=== PATIENT | male | born 1955 | race Caucasian/White ===

== ENCOUNTER 2020-04-01 07:54 | Outpatient (REF) | payer MEDICARE, SELFPAY | END 2020-04-01 07:55 | disposition home or self-care (01) | LOC: HO.WFDLDS 07:54 | PROVIDERS: PCP Physician Assistant Medical; Visit Provider Internal Medicine | DX: Z20.828 Contact with and (suspected) exposure to other viral communicable diseases (principal) | CPT/HCPCS: C9803; U0003 ==

== ENCOUNTER 2023-04-05 13:02 | Outpatient (REF) | payer MEDICARE, SELFPAY | END 2023-04-05 13:03 | disposition home or self-care (01) | LOC: HO.HOSX 13:02 | PROVIDERS: PCP Physician Assistant Medical; Visit Provider Orthopaedic Surgery | DX: M17.0 Bilateral primary osteoarthritis of knee (principal) | CPT/HCPCS: 73562; 99202 ==

== ENCOUNTER 2023-04-05 13:02 | Outpatient (AMB) | payer MEDICARE, SELFPAY ==
--- NOTE | 2023-04-05 13:08 | A.OFFVIS_ITS ---
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 Previous patient of Dr. Machado. Patient describes his knee pains as sharp and severe in nature. At this point his right knee pain is more bothersome than is his left. He has had cortisone injections in the past which gave him minimal relief. He has also done physical therapy which aggravated his pain. He has tried Tylenol and anti-inflammatory medicines which gave him minimal relief. Allergies No Known Allergies Allergy (Verified 04/05/23 13:19) [facility], [facility] Social History (Updated 04/05/23 @ 13:19 by Edis Garcia) Alcohol intake: current Patient Tobacco Use Status: Never used Tobacco Physical Exam Const Other: Well-nourished well-developed very friendly male awake alert and oriented x3 in no acute distress Extrem Other: Bilateral lower extremity examination shows good capillary refill, no skin lesions noted, normal sensation light touch Bilateral knee examination shows minimal effusions, palpable crepitus with range of motion, pain with range of motion, no instability Results Reviewed Results Reviewed: X-rays of the patient's bilateral knee show moderate to severe joint space narrowing, subchondral sclerosis, no acute bony abnormalities Assessment & Plan Assessment & Plan (1) Arthritis of left knee: Code(s): M17.12 - Unilateral primary osteoarthritis, left knee (2) Arthritis of right knee: Code(s): M17.11 - Unilateral primary osteoarthritis, right knee Plan Mr. Riggins presents with bilateral knee pains, right greater than left, due to end-stage degenerative joint disease. I had a lengthy discussion with the patient regarding the treatment options. At this point the patient's symptoms are tolerable to him. We will hold off on a cortisone injection. He will continue with his activity modifications. He will follow up with me on an as- needed basis should his symptoms worsen in any way. Feel free to call me at any time should questions regarding his orthopedic management arise. I spent 22 minutes in reviewing the patient's records and imaging studies, seeing the patient and documenting in the medical record. Orders: Orders XR knee LT 3V Today M17.12 - Unilateral primary osteoarthritis, left knee XR knee RT 3V Today M17.11 - Unilateral primary osteoarthritis, right knee Coding Level of Care Code New Pt Level 2 (88469) Diagnoses Arthritis of left knee M17.12 Arthritis of right knee M17.11
== END 2023-04-05 13:52 | disposition home or self-care (01) ==
PROVIDERS: PCP Physician Assistant Medical; Visit Provider Orthopaedic Surgery
DX: M17.0 Bilateral primary osteoarthritis of knee (principal)
CPT/HCPCS: 99202

== ENCOUNTER 2023-05-17 08:27 | Outpatient (AMB) | payer MEDICARE, SELFPAY ==
--- NOTE | 2023-05-17 08:48 | MHC.OFFVIS ---
Intake Vital Signs 05/17/23 08:55 Height 6 ft 4 in Weight 215 lb BMI 26.2 Intake Visit Reasons: OV- discuss sugery RT TKA Intake Note: Viet is a 67 year old male who presents with complaints of progressively worsening right knee pain. The patient describes his pain as sharp and severe in nature, 01/17. His pain has gotten worse over the last few years in spite of continued non operative treatments. Has done physical therapy which aggravated his pain. He has also tried Tylenol and anti-inflammatory medicines which gave him minimal relief. He has had injections in the past which gave him no relief. The patient has difficulty walking even short distances because of his pain. At this point his right knee pain is interfering with his activities of daily living and his ability to sleep well through the night. Allergies No Known Allergies Allergy (Verified 05/17/23 08:57) Medication List - Last Reconciled 05/17/23 by Hunter Machado MD atorvastatin 40 mg PO DAILY cyanocobalamin (vitamin B-12) (B-12 DOTS) 500 mcg PO DAILY pantoprazole 40 mg PO DAILY [facility] Social History (Updated 04/05/23 @ 13:19 by Edis Garcia) Alcohol intake: current Patient Tobacco Use Status: Never used Tobacco Physical Exam Vital Signs: BMI result Body Mass Index 26.2 Const Other: Well-nourished well-developed very friendly male awake alert and oriented x3 in no acute distress Extrem Other: Bilateral lower extremity examination shows good capillary refill, no skin lesions noted, normal sensation light touch Right knee examination shows a minimal effusion, palpable crepitus with range of motion, pain with range of motion, range of motion from -3 degrees to 115 degrees, no instability Results Reviewed Results Reviewed: X-rays of the patient's right knee show end-stage degenerative joint disease with grade 4 favl-rf-[id number] arthritis in the medial compartment, subchondral sclerosis, osteophyte formation, no acute bony abnormalities Assessment & Plan Assessment & Plan (1) Arthritis of right knee: Code(s): M17.11 - Unilateral primary osteoarthritis, right knee Plan Mr. Riggins presents with progressively worsening right knee pain due to end-stage degenerative joint disease. I had a lengthy discussion with the patient regarding the treatment options. This point he has failed treatments. The risks and benefits of right total knee replacement surgery were discussed at length with the patient. The patient is interested in proceeding with surgery later this year. He will contact my office to pick a surgery date when he is ready do so I will see him back 1 week prior to his surgery to answer any final questions that he might have. Feel free to call me at any time should questions regarding his orthopedic management arise. Coding Level of Care Code Est Pt Level 2 (08563) Diagnoses Arthritis of right knee M17.11
[2023-05-17 08:55] VITALS: BMI 26.2
== END 2023-05-17 09:22 | disposition home or self-care (01) ==
PROVIDERS: PCP Physician Assistant Medical; Visit Provider Orthopaedic Surgery
DX: M17.11 Unilateral primary osteoarthritis, right knee (principal)
CPT/HCPCS: 99213

== ENCOUNTER → 2023-05-17 08:27 | Outpatient (BNVA) | payer MEDICARE, SELFPAY | PROVIDERS: PCP Physician Assistant Medical; Visit Provider Orthopaedic Surgery | DX: M17.11 Unilateral primary osteoarthritis, right knee (principal) | CPT/HCPCS: 99212 ==

== ENCOUNTER → 2024-08-30 10:47 | Outpatient (BNVA) | payer MEDICARE, SELFPAY | PROVIDERS: PCP Physician Assistant Medical | DX: Z01.818 Encounter for other preprocedural examination (principal) ==

== ENCOUNTER → 2024-09-03 10:55 | Outpatient (BNV) | payer MEDICARE, SELFPAY | PROVIDERS: PCP Physician Assistant Medical; Visit Provider Internal Medicine Cardiovascular Disease | DX: I45.10 Unspecified right bundle-branch block (principal) | CPT/HCPCS: 93010 ==

== ENCOUNTER 2024-09-26 07:39 | Outpatient (AMB) | payer MEDICARE, SELFPAY ==
--- OUTSIDE RECORDS SUMMARY | 2024-05-30 05:00 | XMS_ITS | Continuity of Care Document ---
Author Organization [facility] Address [address] [place] [address] [address] [place] [address] Phone Care Team Providers Care Form Tamper Name Role Phone Abdelrahman ELLINGTON, RVT, RPVI, [...] Mins- [place] & [place] [facility], [address] [place] [address] [address]Dada [place], [id number], [place] tel:[phone] CVR - [place] - [place] Venous insufficiency (chronic) (peripheral) 5 Abdelrahman ELLINGTON RVT, RPVI Robert. [address] [place] [address], [address], [place], [id number], [place]. tel:[phone] [place] [facility], [address] [place] [address] [address] 1000Dada MD, [id number], [place] tel:[phone] CVR - [place] Pain in left leg 5 Abdelrahman ELLINGTON RVT, EVIE Jennings. [address] [place] [address], Suite [facility], [place], [id number], [place]. tel:[phone] Referring Provider: Dick Qiuck MD, RVT, EVIE, [address] [place] [address] Suite [facility], [place], [address] . tel:[phone] [place] [facility], [address] [place] [address] [address] 1000Dada MD, [id number], [place] tel:[phone] CVR - [place] Varicose veins of left lower extremity with other complications 5 Abdelrahman ELLINGTON RVT, RPVI Robert. [address] [place] [address], Suite [facility], [place], [id number], [place]. tel:[phone] [place] [facility], [address] [place] [address] [address] 1000Dada MD, [id number], [place] tel:[phone] CVR - [place] Encounter for follow-up examination after completed treatment for conditions other than malignant neoplasm 5 Abdelrahman ELLINGTON RVT, RPVI Robert. [address] [place] [address], Suite [facility], [place], [id number], [place]. tel:[phone] Referring Provider: Dick Quick MD, RVT, EVIE, [address] [place] [address] Suite [facility], [place], [address] . tel:[phone] [place] [facility], [address] [place] [address] Dr Araujo 1000SuDada mohr MD, [id number], [place] tel:[phone] CVR - [place] - [place] Varicose veins of left lower extremity with other complications 5 Abdelrahman ELLINGTON RVT, EVIE Jennings. [address] [place] [address], [facility] [place], [id number], [place]. tel:[phone] Offic/outpt E&m Estab 5 Min Trial- Telemedicine CT & [place] [facility], [address] [place] [address] Dr Araujo 1000SuDada mohr MD, [id number], [place] tel:[phone] [place]R - [place] Localized edemaCramp and spasmVenous insufficiency (chronic) (peripheral)P ruritus, unspecified 5 Tono Salas. [address] [place] [address], [place], [id number], [place]. tel:[phone] [place] [facility], [address] [place] [address] Dr Araujo 1000Dada mohr MD, [id number], [place] tel:[phone] CVR - [place] No Information 5 Abdelrahman ELLINGTON RVT, EVIE Jennings. [address] [place] [address], [place], [id number], [place]. tel:[phone] Office/Oupt E&M New Pt 30 Mins- CT & [place] [facility], [address] [place] [address] Dr Araujo 1000Dada mohr MD, [id number], [place] tel:[phone] [place] - [place] Chronic venous hypertension (idiopathic) without complications of bilateral lower extremityPrur itus, unspecifiedCr amp and spasm 4 Abdelrahman ELLINGTON RVT, EVIE Jennings. [address] [place] [address], [place], [id number], [place]. tel:[phone] [place] [facility], [address] [place] [address] Dr Araujo 1000Dada mohr MD, [id number], [place] tel:[phone] [place]R - [place] Varicose veins of left lower extremity with pain Abdelrahman ELLINGTON, MATA, EVIE Jennings. [address] [place] [address], [address] [address], [place], [id number], . tel:[phone] Referring Provider: Dick Quick MD, MATA, EVIE, [address] [place] [address], [place], [address] . tel:[phone] Family History Family Member Type Diagnosis Age At Onset No Information Payers Payer name Insurance type Covered alliance party ID Authoriza tion(s) Medicare GAURANG SCHMITT [id number] BCBS GAURANG SANCHEZ [id number] Social History Type Description Quantity Date Captured [...] to Body mass index (BMI) 25.0-25.9, adult Patient education booklet given Related to Localized edema Pre and post instruc tions reviewed and provided Related to Localized edema Pre and post [...]
--- NOTE | 2024-09-26 07:58 | MHC.OFFVIS ---
Vital Signs 09/26/24 08:00 Height 6 ft 4 in Weight 220 lb BMI 26.8 Intake Visit Reasons: Pre-Op: R TKA w/ 09/30/24 Intake Note: Viet is a 69 year old male who presents with complaints of progressively worsening right knee pain. The patient describes his pain as sharp and severe in nature, 10/10. His pain has gotten worse over the last few years in spite of continued non operative treatments. Has done physical therapy which aggravated his pain. He has also tried Tylenol and anti-inflammatory medicines which gave him minimal relief. He has had injections in the past which gave him no relief. The patient has difficulty walking even short distances because of his pain. At this point his right knee pain is interfering with his activities of daily living and his ability to sleep well through the night. Allergies No Known Allergies Allergy (Verified 09/26/24 07:59) [facility] Medical History Arthritis GERD (gastroesophageal reflux disease) History of seizure (~2012) History of irregular heartbeat HLD (hyperlipidemia) Surgical History Hx of wisdom tooth extraction Hx of tonsillectomy History of esophagogastroduodenoscopy (EGD) Hx of colonoscopy H/O inguinal hernia repair (12/19/00) Hx of shoulder surgery (~2014) Social History Household Members: Spouse Housing: House Are you a primary physician locums urgent care to a significant other at home: No Do you presently have visiting nurse or other home services: No 75 years or older and lives alone: No Alcohol intake: current Patient Tobacco Use Status: Never used Tobacco e-Cigarette/Vaping Use: Never Used Physical Exam Vital Signs: BMI result Body Mass Index 26.8 Const Other: Well-nourished well-developed very friendly male awake alert and oriented x3 in no acute distress Extrem Other: Bilateral lower extremity examination shows good capillary refill, no skin lesions noted, normal sensation light touch Right knee examination shows a minimal effusion, palpable crepitus with range of motion, pain with range of motion, range of motion from -3 degrees to 115 degrees, no instability Results Reviewed Results Reviewed: X-rays of the patient's right knee show end-stage degenerative joint disease with grade 4 gdur-gs-gogc arthritis, subchondral sclerosis, no acute bony abnormalities Assessment & Plan Assessment & Plan (1) Arthritis of right knee: Code(s): M17.11 - Unilateral primary osteoarthritis, right knee Category: Medical Plan Mr. Riggins is a 69-year-old male who presents with right knee pain due to end-stage degenerative joint disease. I had a lengthy discussion with the patient regarding the treatment options. At this point he has failed continued non operative treatments. The risks and benefits of right total knee replacement surgery were discussed at length with the patient. The patient wishes to proceed with surgery. representative phlebotomy services will be consulted following his surgery for home physical therapy and nursing. The patient will follow-up as instructed. Feel free to call me at any time should questions regarding his orthopedic management arise. I spent 22 minutes in reviewing the patient's records and imaging studies, seeing the patient and documenting in the medical record. Orders: Orders XR knee RT 3V Today M17.11 - Unilateral primary osteoarthritis, right knee Type and Screen Today Z01.818 - Encounter for other preprocedural examination Hemoglobin A1c Today Z01.818 - Encounter for other preprocedural examination Coding Level of Care Code Est Pt Level 3 (95589) Complex EM visit Add On G2211 Diagnoses Arthritis of right knee M17.11
[2024-09-26 08:00] VITALS: BMI 26.8
== END 2024-09-26 08:22 | disposition home or self-care (01) ==
LOC: HO.HOS 07:40
PROVIDERS: PCP Physician Assistant Medical; Visit Provider Orthopaedic Surgery
DX: M17.11 Unilateral primary osteoarthritis, right knee (principal)
CPT/HCPCS: 99213; G2211

== ENCOUNTER 2024-09-26 08:59 | Outpatient (REF) | payer MEDICARE, SELFPAY ==
--- OUTSIDE RECORDS SUMMARY | 2024-05-30 05:00 | XMS_ITS | Continuity of Care Document ---
Author Organization [facility] Address [address] [place] [address] [address] [place] [address] Phone Care Team Providers Care Electroplating Sales Representative Name Role Phone Abdelrahman ELLINGTON, RVT, RPVI, [...] Mins- [place] & [place] [facility], [address] [place] [address] [address]Dada MD, [id number], [place] tel:[phone] CVR - [place] Venous insufficiency (chronic) (peripheral) 5 Abdelrahman ELLINGTON RVT, RPVI Robert. [address] [place] [address], [address], [place], [id number], [place]. tel:[phone] [place] [facility], [address] [place] [address] [address] 1000Dada MD, [id number], [place] tel:[phone] CVR - [place] Pain in left leg 5 Abdelrahman ELLINGTON RVT, EVIE Jennings. [address] [place] [address], Suite [facility], [place], [id number], [place]. tel:[phone] Referring Provider: Dick Quick MD, RVT, EVIE, [address] [place] [address] Suite [facility], [place], [address] . tel:[phone] [place] [facility], [address] [place] [address] [address] 1000Dada MD, [id number], [place] tel:[phone] [place] - [place] Varicose veins of left lower extremity with other complications 5 Abdelrahman ELLINGTON RVT, RPVI Robert. [address] [place] [address], Suite [facility], [place], [id number], [place]. tel:[phone] [place], [address] [place] [address] [address]Suite 1000Dada MD, [id number], [place] tel:[phone] [place] - [place] Encounter for follow-up examination after completed treatment for conditions other than malignant neoplasm 5 Abdelrahman ELLINGTON RVT, RPVI Robert. [address] [place] [address], Suite [facility], [place], [id number], [place]. tel:[phone] Referring Provider: Dick Quick MD, RVT, EVIE, [address] [place] [address] Suite [facility], [place], [address] . tel:[phone] [place] [facility], [address] [place] [address] Dr Araujo 1000SuDada mohr MD, [id number], [place] tel:[phone] CVR - [place] - [place] Varicose veins of left lower extremity with other complications 5 Abdelrahman ELLINGTON RVT, EVIE Jennings. [address] [place] [address], [facility] [place], [id number], [place]. tel:[phone] Offic/outpt E&m Estab 5 Min Trial- Telemedicine CT & [place] [facility], [address] [place] [address] Dr Araujo 1000SuDada mohr MD, [id number], [place] tel:[phone] CVR - [place] - [place] Localized edemaCramp and spasmVenous insufficiency (chronic) (peripheral)P ruritus, unspecified 5 Tono Salas. [address] [place] [address], [place], [id number], [place]. tel:[phone] [place] [facility], [address] [place] [address] Dr Araujo 1000Dada mohr MD, [id number], [place] tel:[phone] CVR - [place] - [place] No Information 5 Abdelrahman ELLINGTON RVT, EVIE Jennings. [address] [place] [address], [place], [id number], [place]. tel:[phone] Office/Oupt E&M New Pt 30 Mins- [place] & [place] [facility], [address] [place] [address] Dr Araujo 1000Dada mohr MD, [id number], [place] tel:[phone] CVR - [place] - [place] Chronic venous hypertension (idiopathic) without complications of bilateral lower extremityPrur itus, unspecifiedCr amp and spasm 4 Abdelrahman ELLINGTON RVT, EVIE Jennings. [address] [place] [address], [place], [id number], [place]. tel:[phone] [facility], [address] [place] [address] Dr Araujo 1000Dada mohr MD, [id number], [place] tel:[phone] CVR - [place] - [place] Varicose veins of left lower extremity with pain Abdelrahman ELLINGTON, MATA, EVIE Jennings. [address] [place] [address], [address] [address], [place], [id number], . tel:[phone] Referring Provider: Dick Quick MD, MATA, EVIE, [address] [place] [address], [place], [address] . tel:[phone] Family History Family Member Type Diagnosis Age At Onset No Information Payers Payer name Insurance type Covered republican ID Authoriza tion(s) Medicare GAURANG SCHMITT [id number] BCBS GAURANG SANCHEZ [id number] Social History Type Description Quantity Date Captured [...] education booklet given Related to Localized edema Diet education Related to Body mass index (BMI) 25.0-25.9, adult Giving Encouragement to exercise Related to Body mass index (BMI) 25.0-25.9, adult Lifestyle education Related to B renato mass index (BMI) 25.0-25.9, adult Pre and [...]
== END 2024-09-26 09:00 | disposition home or self-care (01) ==
LOC: HO.HOSX 08:59
PROVIDERS: Visit Provider Orthopaedic Surgery
DX: Z01.818 Encounter for other preprocedural examination (principal); M17.11 Unilateral primary osteoarthritis, right knee
CPT/HCPCS: 99212

== ENCOUNTER 2024-09-30 06:41 | Day surgery (SDC) | payer MEDICARE, SELFPAY ==
--- NOTE | 2024-09-03 | ECG_ITS ---
Test Reason : preop Blood Pressure : */* mmHG Vent. Rate : 61 BPM Atrial Rate : 61 BPM P-R Int : 172 ms QRS Dur : 112 ms QT Int : 416 ms P-R-T Axes : 74 42 45 degrees QTcB Int : 418 ms Normal sinus rhythm Incomplete right bundle branch block Borderline ECG No previous ECGs available Referred By: Shannon Montoya Electronically Signed By: DARIUS CACERES MD
[2024-09-03 09:53] VITALS: BP 127/81; PULSE 65; RESP 16; O2SAT 98; BMI 26.3
[2024-09-03 11:28] LABS: Hematocrit 41.9 % (42.0-52.0); Hemoglobin 14.7 g/dl (14.0-18.0); Mean Corpuscular HGB Conc 35.1 g/dl (31.0-36.0); Mean Corpuscular Volume 91.1 fL (80.0-98.0); Mean Platelet Volume 9.7 fL (9.4-12.4); Platelet Count 174 X10*3/uL (160-400); Red Cell Distribution Width 12.9 % (11.0-16.0); White Blood Count 4.6 X10*3/uL (4.8-10.8)
[2024-09-03 11:50] LABS: MRSA Nasal PCR NEGATIVE (Negative); SA Nasal PCR NEGATIVE (Negative)
[2024-09-03 11:54] LABS: Anion Gap 12 (12-20); Blood Urea Nitrogen 12 mg/dL (9-16); Calcium 9.2 mg/dL (8.4-10.2); Carbon Dioxide 27 mmol/L (22-29); Chloride 103 mmol/L (96-108); Creatinine Clr Calc Pharmacy 95.6; Estimated Glomerular Filt Rate > 60; Glucose Random 93 mg/dL (60-115); Potassium 4.5 mmol/L (3.3-5.1); Sodium 137 mmol/L (135-145)
[2024-09-26 09:45] LABS: Estimated Average Glucose 114 mg/dL; Hemoglobin A1C 150.0203 umol/L; Hemoglobin A1c % 5.6 % (<6.0)
[2024-09-30] VITALS (12 sets, daily range): BP systolic 107–135; BP diastolic 58–79; PULSE 45–70; RESP 12–18; TEMP 36.1–36.4; O2SAT 97–99
--- NOTE | 2024-09-30 | ECG_ITS ---
Test Reason : BRADYCARDIA Blood Pressure : */* mmHG Vent. Rate : 52 BPM Atrial Rate : 52 BPM P-R Int : 182 ms QRS Dur : 116 ms QT Int : 478 ms P-R-T Axes : * -11 99 degrees QTcB Int : 444 ms Sinus bradycardia Incomplete right bundle branch block Inferior infarct , age undetermined Abnormal ECG When compared with ECG of 03-Sep-2024 10:55, Nonspecific T wave abnormality now evident in Inferior leads Nonspecific T wave abnormality now evident in Lateral leads Referred By: Rocio Cardona Electronically Signed By: MANISH BRIDGES
[2024-09-30] MEDS: Lactated Ringers 1,000 ML 100 ML IVCONT ×2 (08:11→14:26)
--- NOTE | 2024-09-30 08:40 | HO.ANESPROP2 ---
Documented by User: Shannon Montoya NP 09/25/24 13:43 HPI - Anesthesia Eval Consult details Narrative: 69yo M for Right Knee Replacement Total, 09/30/24 [facility] No recent illness No CP/SOB with housework. Limited by knee pain GERD: ppi QHS controls Irregular heart beat/skips beat. Told years ago. Pt does not have further info. Moderate risk Stop-Bang. Discussed post-op risks. PMFSH Active Problems Active Problems: All Active Problems Arthritis of right knee (Acute) Arthritis of left knee (Acute) Past Medical History Medical History Arthritis GERD (gastroesophageal reflux disease) History of seizure (~2012) History of irregular heartbeat HLD (hyperlipidemia) Family History Family history of problems with anesthesia: No Surgical History Surgical History Hx of wisdom tooth extraction Hx of tonsillectomy History of esophagogastroduodenoscopy (EGD) Hx of colonoscopy H/O inguinal hernia repair (12/19/00) Hx of shoulder surgery (~2014) History of Problems with Anesthesia: No Social History Social History Household Members: Spouse Housing: House Are you a primary pet care attendant to a significant other at home: No Do you presently have visiting nurse or other home services: No Alcohol intake: current Patient Tobacco Use Status: Never used Tobacco e-Cigarette/Vaping Use: Never Used Use of substances other than those prescribed or required for medical reasons: No Have you been hit, kicked, punched, or otherwise hurt by someone within the past year? If so, by whom?: No Are you DNR?: No Advance Directives: No Advance Directives Information Provided: Yes Advance Directives on File: No Poor oral hygiene: No Meds Allergies Allergy/AdvReac Type Severity Reaction Status Date / Time No Known Allergies Allergy Verified 09/30/24 07:16 Home Medications ?Medication ?Instructions ?Recorded ?Confirmed ?Last Taken ?Type atorvastatin 40 mg tablet 40 mg PO BEDTIME 05/17/23 09/03/24 09/29/24 History cyanocobalamin (vitamin B-12) 500 500 mcg PO BID 05/17/23 09/03/24 09/29/24 History mcg tablet (B-12 DOTS) pantoprazole 40 mg tablet,delayed 40 mg PO BEDTIME 05/17/23 09/03/24 09/29/24 History release carboxymethylcellulose sodium 1 % 1 drp ophthalmic (eye) QID 09/03/24 09/03/24 09/29/24 History eye liquid gel drops omega 1-ane-lpf-fish oil 1,200 mg 1 cap PO BID 09/03/24 09/03/24 09/22/24 History (144 mg-216 mg) capsule (Fish Oil) sildenafil 100 mg tablet 100 mg PO DAILY PRN Sexual Activity 09/03/24 09/03/24 Unknown History Exam Height,Weight and Vital Signs: Height 6 ft 4 in Weight 97.976 kg Last Vital Signs Pulse 65 09/03/24 09:53 Resp 16 09/03/24 09:53 BP 127/81 09/03/24 09:53 Pulse Ox 98 09/03/24 09:53 O2 Del Method Room Air 09/03/24 09:53 Pertinent Lab Results Pertinent Lab Results: EKG 08/2024 Vent. Rate : 61 BPM Atrial Rate : 61 BPM P-R Int : 172 ms QRS Dur : 112 ms QT Int : 416 ms P-R-T Axes : 74 42 45 degrees QTcB Int : 418 ms Normal sinus rhythm Incomplete right bundle branch block Borderline ECG No previous ECGs available Narrative Narrative: Lab Results 09/03/24 09/03/24 09/16/24 Range/Units 10:25 10:53 06:46 WBC 4.6 L (4.8-10.8) X10*3/uL RBC 4.60 (4.60-5.80) X10*6/uL Hgb 14.7 (14.0-18.0) g/dl Hct 41.9 L (42.0-52.0) % MCV 91.1 (80.0-98.0) fL MCH 32.0 (27.0-33.0) pg MCHC 35.1 (31.0-36.0) g/dl RDW 12.9 (11.0-16.0) % Plt Count 174 (160-400) X10*3/uL MPV 9.7 (9.4-12.4) fL Absolute Nucleated RBC 0.000 (0.0-0.012) X10*3/uL Nucleated RBC % (auto) 0.0 (0.0-0.2) /100WBC Sodium 137 (135-145) mmol/L Potassium 4.5 (3.3-5.1) mmol/L Chloride 103 (96-108) mmol/L Carbon Dioxide 27 (22-29) mmol/L Anion Gap 12 (12-20) BUN 12 (9-16) mg/dL Creatinine 0.87 (0.5-1.4) mg/dL Estim Creat Clear Calc 95.6 Estimated GFR > 60 Random Glucose 93 (60-115) mg/dL Calcium 9.2 (8.4-10.2) mg/dL Nasal Screen MRSA (PCR) NEGATIVE (Negative) Nasal S. aureus Screen NEGATIVE (Negative) Nasal MRSA/S.aureus Interp SEE NOTE Blood Type A Positive Antibody Screen NEGATIVE Airway TM Dist: >3cm Neck ROM: Full Loose/Missing/Broken Teeth: No Heart: RRR Lungs: CTAB Assessment and Plan Assessment Anesthesia Assessment: Anesthesia Plan Discussed and PAT Visit Final Anesthetic Review Family History of Problems with Anesthesia: No History of Problems with Anesthesia: No Documented by User: Brisa Villeda DO 09/30/24 08:56 [facility] Past Medical History Medical History Arthritis GERD (gastroesophageal reflux disease) History of seizure (~2012) History of irregular heartbeat HLD (hyperlipidemia) Family History Family history of problems with anesthesia: No Surgical History Surgical History Hx of wisdom tooth extraction Hx of tonsillectomy History of esophagogastroduodenoscopy (EGD) Hx of colonoscopy H/O inguinal hernia repair (12/19/00) Hx of shoulder surgery (~2014) History of Problems with Anesthesia: No Social History Social History Household Members: Spouse Housing: House Are you a primary pet care attendant to a significant other at home: No Do you presently have visiting nurse or other home services: No Alcohol intake: current Patient Tobacco Use Status: Never used Tobacco e-Cigarette/Vaping Use: Never Used Use of substances other than those prescribed or required for medical reasons: No Have you been hit, kicked, punched, or otherwise hurt by someone within the past year? If so, by whom?: No Are you DNR?: No Advance Directives: No Advance Directives Information Provided: Yes Advance Directives on File: No Poor oral hygiene: No Meds Allergies Allergy/AdvReac Type Severity Reaction Status Date / Time No Known Allergies Allergy Verified 09/30/24 07:16 Home Medications ?Medication ?Instructions ?Recorded ?Confirmed ?Last Taken ?Type atorvastatin 40 mg tablet 40 mg PO BEDTIME 05/17/23 09/03/24 09/29/24 History cyanocobalamin (vitamin B-12) 500 500 mcg PO BID 05/17/23 09/03/24 09/29/24 History mcg tablet (B-12 DOTS) pantoprazole 40 mg tablet,delayed 40 mg PO BEDTIME 05/17/23 09/03/24 09/29/24 History release carboxymethylcellulose sodium 1 % 1 drp ophthalmic (eye) QID 09/03/24 09/03/24 09/29/24 History eye liquid gel drops omega 0-jid-phd-fish oil 1,200 mg 1 cap PO BID 09/03/24 09/03/24 09/22/24 History (144 mg-216 mg) capsule (Fish Oil) sildenafil 100 mg tablet 100 mg PO DAILY PRN Sexual Activity 09/03/24 09/03/24 Unknown History Exam Exam Date and Time: 09/30/24 0840 Airway Mallampati Class: II TM Dist: >3cm Neck ROM: Full Loose/Missing/Broken Teeth: No (patient denies any loose or broken teeth) Heart: S1S2 Assessment and Plan Assessment Anesthesia Assessment: Anesthesia Plan Discussed and Chart Reviewed Final Anesthetic Review Family History of Problems with Anesthesia: No History of Problems with Anesthesia: No NPO: Yes ASA Class: II Final Preanesthetic Review: No Changes in Pt Med Stat, Meds/Allgs Chart Reviewed, Consent Obtained/Reviewed and Anes Risks/Benef Reviewed Patient Risk: Low Procedure Risk: Intermediate Anesthetic Plan Anesthetic Plan: Spinal, Regional Block (right adductor canal and right ipack block) and Agree w/ Assess. and Plan Disposition: Standard PACU
--- NOTE | 2024-09-30 08:46 | P.DS_ITS ---
DS: Providers Provider Date of Service: 10/01/24 Date of discharge: 10/01/24 Primary care physician: RIGO Dukes Consults: 09/30/24 08:36 Consult to Hospitalist Routine Comment: Consulting Provider[place] [facility] Reason For Exam: Routine medical management DS: Summary Hospital Course Hospital Course: The patient underwent a successful right total knee arthroplasty, they were transferred to PACU and then to the floor to recover. During their stay, their vitals were stable, afebrile at 96.9. Labs were unremarkable, H/H 13.6/39.5. POD 0 they were started on Aspirin 325mg po bid for DVT ppx, they also received Physical Therapy services twice a day. Prior to discharge, their dressing was clean dry and intact, and the plan was to be discharged home with VNA services. Time Attestation Discharge Coordination Time (in mins): 30 Quality: Safe Use of Opioids Does Pt have an Active Cancer Diagnosis on the Problem List?: No Quality: Stroke Does the patient have a stroke diagnosis?: No Physical Exam Vital Signs: Vital Signs: Last Vital Signs Temp 97.5 F 09/30/24 07:32 Pulse 70 09/30/24 07:32 Resp 15 09/30/24 07:32 BP 135/79 09/30/24 07:32 Pulse Ox 98 09/30/24 07:32 O2 Del Method Room Air 09/30/24 07:32 BMI result Body Mass Index 26.3 Const: General: cooperative, healthy appearing and no acute distress Resp: Effort & Inspection: normal respiratory effort and able to speak in complete sentences Cardio: Rate: regular rate Peripheral pulses: Peripheral pulses 2+ throughout GI: Palpation (GI): Soft to palpation Skin: Lesions: no lesions Rashes: no rashes Extrem: Other: right knee dressing is c/d/i. Able to dorsi/plantar flex. Calf is supple and nontender. Sensation intact. Pedal pulse intact. Discharge Plan Discharge Patient Disposition: Home Health Service Referrals: Alma Lemons PA-C [Physician Upper Extremity Surgeon, Orthopedics] - 10/17/24 1:00 pm Discharge Medications: New methocarbamol 500 mg Tablet 500 mg PO TID 7 Days Qty: 21 0RF celecoxib 200 mg Capsule 200 mg PO BID 30 Days Qty: 60 0RF acetaminophen 325 mg Tablet 650 mg PO Q6H PRN (Reason: Pain, Mild 1-3,Fever,Headache) 30 Days Qty: 250 0RF aspirin 325 mg Tablet 325 mg PO BID 42 Days Qty: 84 0RF docusate sodium 100 mg Capsule 100 mg PO BID 30 Days Qty: 60 0RF gabapentin 100 mg Capsule 100 mg PO BEDTIME 7 Days Qty: 7 0RF oxycodone 5 mg Tablet 5 mg PO Q4H PRN (Reason: Pain, Moderate(Pain Scale 4-6)) 7 Days Qty: 42 0RF Rx Instructions: Partial Fill upon patient request. [facility] See Rx Instructions .ROUTE .MEDSUPPLY Qty: 1 0RF Rx Instructions: Folding front wheeled walker omega 0-fhx-iuf-fish oil [Fish Oil] 1,200 (144-216) mg Capsule 1 cap PO BID sildenafil 100 mg Tablet 100 mg PO DAILY PRN (Reason: Sexual Activity) Rx Instructions: administer 30 minutes to 4 hours before activity carboxymethylcellulose sodium 1 % Drops, Liquid Gel 1 drp OPHTHALMIC (EYE) QID cyanocobalamin (vitamin B-12) [B-12 DOTS] 500 mcg tablet 500 mcg PO BID pantoprazole 40 mg tablet,delayed release (DR/EC) 40 mg PO BEDTIME atorvastatin 40 mg tablet 40 mg PO BEDTIME Discharge Orders: Discharge Order (Routine); Ordered 10/01/24 Ordered By: Alma Lemons Diet: Advance to usual diet Activity on Discharge: Use cane or walker Activity Restrictions/Additional Instructions: Physical Therapy for ROM 0-120, quad strength, gait training. Use walker for ambulation Limit stair climbing, No shower, No tub bath, No driving Continue anticoagulant Aspirin x 6 weeks Keep Aquacel dressing clean, dry and intact. Follow up with orthopedics in 2 weeks Print Language: Irish
--- NOTE | 2024-09-30 08:48 | P.F2F_ITS ---
Service Date Service Date: 09/30/24 Encounter Date of encounter: 10/01/24 Reasons for Services Signs and symptoms assessed: s/p RTKA Pt. is considered homebound due to recent surgery. Unable to drive, poor balance, poor gait mechanics. Reason for physical therapy: home safety and mobility, therapeutic exercises, restore joint function, gait/transfer training and ADL training Homebound: Leaving the home is medically contraindicated at this time without the asist of a device and/or another person due th the listed conditions above and below. Reason homebound: unsteady gait / fall risk, leg weakness, pain with ambulation, pain with transfers, poor balance / fall risk and unable to drive Certification: Based on the above findings, I certify that this patient is confined to the home and needs intermittent longterm care, physical therapy and/or speech th erapy, or continues to need occupational therapy. The patient is under my care, and I have initiated the establishment of the plan of care. The patient will be followed by a physician who will periodically review the plan of care. Time Spent With Patient Time: Total time managing care of this patient today ____ minutes.
[2024-09-30] MEDS: ceFAZolin Sodium/Dextrose,Iso 2 GM/50 ML PIGGYBACK IV ×3 (09:30→23:52)
[2024-09-30] MEDS: Acetaminophen 1,000 MG/100 ML PIGGYBACK 400 MG IV (11:00)
--- NOTE | 2024-09-30 11:52 | PM.OP ---
Brief Operative Note Date of Service: 09/30/24 Pre-op diagnosis: Right knee degenerative joint disease Post-op diagnosis: same Procedure: Right total knee arthroplasty Implants: [place] [employer] cemented posterior stabilized total knee arthroplasty with a femoral component size 5 right, tibial component size 6, polyethylene liner size 6 with 11 mm of thickness, an asymmetric patellar component size 35 with 10 mm of thickness Surgeon: Hunter Machado MD Anesthesia: regional and spinal Was an Table Top Tile Setter used for this Procedure?: No Table Top Tile Setter: Alma Lemons Estimated blood loss (mL): 200 Pathology: other (Bony fragments from the right femur, tibia and patella) Condition: stable Disposition: PACU
--- NOTE | 2024-09-30 11:54 | W.PM.OPN ---
Operative Note Operative Note Date of Service: 09/30/24 Narrative: After the patient was identified as Viet Riggins and his right knee was initialed by myself the patient was brought to the holding area where a right leg nerve block was performed by the anesthesiologist in routine fashion. The patient was then brought to the operating room where conscious sedation and spinal anesthesia were performed by the anesthesiologist in routine fashion. The patient was given 2 g of IV Ancef preoperatively for infection prophylaxis. The patient's right lower extremity was prepped and draped in sterile fashion. A formal time-out was completed. The patient's right knee was placed onto a small bump to produce 30? of knee flexion during exposure. A #10 scalpel blade was used to make a midline incision extending 1 handbreadth proximal and distal to the patella. A second #10 scalpel blade was used to dissect the subcutaneous tissues down to the extensor mechanism. The subcutaneous flaps were maintained as thick as possible. A medial parapatellar arthrotomy was then performed using a #10 scalpel blade. The arthrotomy was begun just medial to the patellar tendon. The arthrotomy was continued 1 cm medial to the patella and then 5 mm into the medial aspect of the quadriceps tendon. The infrapatellar fat pad was partially excised to help with exposure. The soft tissue retinaculum was raised one-half of the way around the medial aspect of the proximal tibia. The patella was everted and the knee was flexed to 90?. There was no injury to the patellar tendon or its insertion onto the tibial tubercle. A drill bit was introduced into the distal aspect of the femur with a starting point 1 cm anterior to the origin of the posterior cruciate ligament. The intramedullary alignment radhika was put into place. The distal alignment guide was set for a 5 degree valgus cut. The distal cutting block was put into place and was held with 4 pins. The intramedullary alignment radhika was removed. Soft tissues were retracted in the distal femoral cut was made using a sagittal saw. The distal aspect of the femur measured to be a size 5 right component. Two drill holes were placed into the distal aspect of the femur marking 3? of external rotation. The distal cutting block was impacted into place and was held with 2 pins. Soft tissues were retracted and the 4 distal femoral cuts were made using a sagittal saw. Final notching and drilling of the distal aspect of the femur were performed in routine fashion. The trial femoral component was impacted into place. The knee was taken through a full range of motion. The patella tracked well. The patella was everted and the knee was flexed to 90?. The trial component was removed and our attention was directed to the proximal tibia. The medial and lateral menisci were removed using a #10 scalpel blade. A small rim of the medial meniscus was left intact to help prevent injury to the medial collateral ligament. A drill bit was then introduced into the proximal tibia with a starting point midway from medial to lateral and one-third of the way posteriorly. The intramedullary alignment radhika was put into place. The proximal tibial cutting guide was placed over the alignment radhika in line with the 2nd toe. The guide was held in place using 3 pins. The intramedullary alignment radhika was removed. Soft tissues were retracted and the proximal tibial cut was made using a sagittal saw. The proximal tibia measured to be a size 6 component. The tibial tray was put into place with an 11 mm liner. The femoral component was impacted into place. The knee was taken through a full range of motion. There was full flexion and full extension. There was no instability with varus or valgus stress testing with the knee in flexion or extension. The patella tracked well with no medially directed force. The rotation of the tibial tray was marked using electrocautery with the knee in extension. The patella was everted and the knee was flexed to 90?. All trial components were removed. The tibial tray was placed onto the proximal tibia in line with the electrocautery abdiaziz. The tray was held in place using 3 pins. Final broaching of the proximal tibia was performed in routine fashion. The trial liner and trial femoral component were put into place. The knee was brought into extension and our attention was directed to the patella. The patella measured 25 mm in thickness. The patellar resection guide was set for a 10 mm resection. Soft tissues were retracted and the patella cut was made using a sagittal saw. The remaining patella measured 15 mm in thickness. The undersurface of the patella was measured to be a size 35 asymmetric component. Three drill holes were placed into the undersurface of the patella in routine fashion. The trial component was put into place. The knee was taken through a full range of motion. The patella tracked well. The patella was everted and the knee was flexed to 90?. All trial components were removed. The knee was once again brought into extension and placed onto a small bump. The knee joint was irrigated with copious amounts of normal saline solution via pulse lavage while the cement was mixed. The patella was everted and the knee was flexed to 90?. A small amount of cement was placed along the posterior aspects of the tibial and femoral components. Cement was then pressurized into the proximal tibia. The tibial component was impacted into place. Any excess cement was removed. The polyethylene liner was then impacted into place. Cement was then pressurized into the distal aspect of the femur. A small amount of cement was placed into the intramedullary canal to help reduce bleeding. The femoral component was impacted into place. Any excess cement was removed. The knee was then brought into extension. Cement was pressurized into the undersurface of the patella. The patellar component was put into place and was held with a patella clamp. Any excess cement was removed. Once the cement had hardened the patellar clamp was removed. The knee was taken through a full range of motion. There was full flexion and extension. There was no instability with varus or valgus stress testing with the knee in flexion or extension. The patella tracked well with no medially directed force. The knee joint was irrigated with copious amounts of normal saline solution via pulse lavage. Any significant bleeding vessels were coagulated. The patient's right knee was placed onto a small bump. The arthrotomy was closed with #2 Ethibond [id number] interrupted suture as well as #1 Vicryl [id number] interrupted suture. The wound was once again irrigated. The subcutaneous tissues were closed with 0 Vicryl and 2-0 Vicryl interrupted sutures. The skin was closed with skin petra. Dry sterile dressing and Gregg bandages were placed over the patient's right knee. The patient was awake and alert. The patient was transferred to the recovery room in stable condition.
--- NOTE | 2024-09-30 12:36 | PHA.MEDREC ---
Addendum entered by Don eRddy [facility] 09/30/24 12:39: MED REC CHECKED BY [facility] Original Note: Pharmacy Consult ? Medication Reconciliation Pharmacy has reviewed the medication reconciliation done by nursing. Claims match med list.
[2024-09-30] MEDS: Docusate Sodium 100 MG CAPSULE PO ×2 (14:11→20:32)
[2024-09-30] MEDS: Celecoxib 200 MG CAPSULE PO ×2 (14:11→20:32)
[2024-09-30] MEDS: methocarbamoL 500 MG TABLET PO ×2 (14:11→20:32)
--- NOTE | 2024-09-30 15:17 | PC.NURSE ---
Heart rate 47-48, pt is asymptomatic, and [employer] Rocio made aware.
--- NOTE | 2024-09-30 15:39 | HO.PM.IMCN ---
History of Present Illness Data of Consult Service Date: 09/30/24 Primary Care Provider: RIGO Dukes [facility] Reason for consult: Medical management 69-year-old male with a past medical history of arthritis, GERD, remote history of seizure (2012), history of arrhythmia, hyperlipidemia, admitted today for a right total knee replacement with Dr. Machado. Patient is seen postoperative, he is awake and alert, required a straight catheterization due to retention. Patient reported to nursing that he has 2-6 beers daily, his currently on a CIWA scale, not scoring. Patient had a combination of general, regional and spinal anesthesia. He is bradycardic. EKG without any ischemic changes, incomplete RBBB. Patient is asymptomatic, denies any shortness of breath, chest pain, dizziness lightheadedness or any other concerning symptoms. His blood pressure is stable. He is eating and drinking, no nausea or vomiting. Review of Systems Review of Systems: Denies any shortness of breath, chest pain, dizziness, lightheadedness, abdominal pain or discomfort, nausea vomiting or diarrhea PMFSH Medical History Arthritis GERD (gastroesophageal reflux disease) History of seizure (~2012) History of irregular heartbeat HLD (hyperlipidemia) Surgical History Hx of wisdom tooth extraction Hx of tonsillectomy History of esophagogastroduodenoscopy (EGD) Hx of colonoscopy H/O inguinal hernia repair (12/19/00) Hx of shoulder surgery (~2014) Social History Household Members: Spouse Housing: House Are you a primary caregivers homecare to a significant other at home: No Do you presently have visiting nurse or other home services: No Alcohol intake: current Patient Tobacco Use Status: Never used Tobacco e-Cigarette/Vaping Use: Never Used Use of substances other than those prescribed or required for medical reasons: No Currently Displaying Signs/Symptoms of Drug Intoxication Withdrawal: No Have you been hit, kicked, punched, or otherwise hurt by someone within the past year? If so, by whom?: No Do you feel safe in your current relationship?: Yes Is there a partner from a previous relationship who is making you feel unsafe now?: No Are you made to feel afraid or neglected: No Spiritual Healthcare Practices: pentecostal Are you DNR?: No Advance Directives: No Advance Directives Information Provided: Yes Advance Directives on File: No Do you have a plan to hurt others: No Plan Recently lost weight without trying: No Nutrition Risks: No Nutritional Risk Poor oral hygiene: No Meds Allergies Allergy/AdvReac Type Severity Reaction Status Date / Time No Known Allergies Allergy Verified 09/30/24 07:16 Active Medications: Current Medications Acetaminophen (Acetaminophen 325 Mg Tablet) 650 mg PO Q6H PRN PRN Reason: Pain, Mild 1-3,fever,headache Artificial Tears (Artificial Tears 15 Ml Drops) 1 drop EYE-BOTH QID [facility] Aspirin (Aspirin 325 Mg Tablet) 325 mg PO BID [facility] Atorvastatin Calcium (Atorvastatin Calcium 40 Mg Tablet) 40 mg PO BEDTIME IVANIA Celecoxib (Celecoxib 200 Mg Capsule) 200 mg PO BID [facility] Last Admin: 09/30/24 14:11 Dose: 200 mg Cyanocobalamin (Cyanocobalamin (Vitamin B-12) 500 Mcg Tablet) 500 mcg PO BID [facility] Docusate Sodium (Docusate Sodium 100 Mg Capsule) 100 mg PO BID [facility] Last Admin: 09/30/24 14:11 Dose: 100 mg Gabapentin (Gabapentin 100 Mg Capsule) 100 mg PO BEDTIME [facility] Hydromorphone HCl (Hydromorphone Hcl 0.5 Mg/0.5 Ml Syringe) 0.25 mg IVPUSH Q4H PRN; Protocol PRN Reason: Pain, Severe (Pain Scale 7-10) Lactated Ringer's (Lr) 1,000 mls @ 100 mls/hr IVCONT .Q10H [facility] Last Admin: 09/30/24 14:26 Dose: 100 mls/hr Cefazolin Sodium/Dextrose (Ancef) 2 gm in 50 mls @ 100 mls/hr IV Q8H [facility] Stop: 10/01/24 00:01 Magnesium Hydroxide (Milk Of Magnesia 30 Ml Oral.Susp) 30 ml PO DAILY PRN PRN Reason: Constipation Melatonin (Melatonin 3 Mg Tablet) 6 mg PO BEDTIME PRN PRN Reason: Insomnia Methocarbamol (Methocarbamol 500 Mg Tablet) 500 mg PO TID [facility] Last Admin: 09/30/24 14:18 Dose: Not Given Omeprazole (Omeprazole 20 Mg Capsule.Dr) 20 mg PO DAILY@1800 IVANIA Ondansetron HCl (Ondansetron Hcl 4 Mg/2 Ml Vial) 4 mg IVPUSH Q8H PRN PRN Reason: Nausea and Vomiting Oxycodone HCl (Oxycodone Hcl Immed Release 5 Mg Tablet) 5 mg PO Q4H PRN PRN Reason: Pain, Moderate(Pain Scale 4-6) Sodium Chloride (0.9 % Sodium Chloride Flush 3 Ml Syringe) 3 ml IVFLUSH QSHIFT [facility] Home Medications ?Medication ?Instructions ?Recorded ?Confirmed ?Last Taken ?Type atorvastatin 40 mg tablet 40 mg PO BEDTIME 05/17/23 09/03/24 09/29/24 History cyanocobalamin (vitamin B-12) 500 500 mcg PO BID 05/17/23 09/03/24 09/29/24 History mcg tablet (B-12 DOTS) pantoprazole 40 mg tablet,delayed 40 mg PO BEDTIME 05/17/23 09/03/24 09/29/24 History release carboxymethylcellulose sodium 1 % 1 drp ophthalmic (eye) QID 09/03/24 09/03/24 09/29/24 History eye liquid gel drops omega 9-gqm-izd-fish oil 1,200 mg 1 cap PO BID 09/03/24 09/03/24 09/22/24 History (144 mg-216 mg) capsule (Fish Oil) sildenafil 100 mg tablet 100 mg PO DAILY PRN Sexual Activity 09/03/24 09/03/24 Unknown History Physical Exam Vital Signs and Narrative: Vital Signs: Last Vital Signs Temp 96.9 F 09/30/24 13:11 Pulse 47 L 09/30/24 14:15 Resp 18 09/30/24 13:11 BP 125/77 09/30/24 13:11 Pulse Ox 99 09/30/24 13:11 O2 Del Method Room Air 09/30/24 13:11 BMI result Body Mass Index 26.3 CONST: Alert and oriented, in NAD. Well nourished HEENT: Normocephalic, atraumatic, MMM, Eyes clear, Neck supple RESP: Lungs clear, RRR even and regular HEART:,RRR, S1, S2. No edema. Bradycardia GI:Abdomen Soft NT, ND. + BS times four :Deferred SKIN: Warm dry and intact, no visible lesions or rashes. Gregg wrap in place. NEURO:CN II-XII Intact bilaterally, Sensation intact. Speech clear PSYCH: Normal affect Results Labs 09/03/24 10:53 09/03/24 10:53 Assessment and Plan (1) Bradycardia following surgery: Status: Acute Plan 69-year-old male with a past medical history of hyperlipidemia, acid reflux admitted after elective right total knee replacement with Dr. Machado today. Postoperatively he is doing well, eating and drinking no evidence of pain or nausea. Patient has been bradycardic, rate improving. Status post right total knee replacement Plan per surgery Straight cath as needed for urinary retention EtOH use Reports 2-6 beers a day. No evidence of withdrawal Continue CIWA scale Per patient he has never had any symptoms of alcohol withdrawal. Bradycardia Patient's heart rate is 48-52. EKG with incomplete right bundle branch block, no ischemic changes. Continue to monitor on telemetry. Acid reflux Continue Prilosec Hyperlipidemia Continue statin VTE prophylaxis: ASA 325 b.i.d. Code status: FULL CODE Thank you for allowing me to participate in the care of this patient. Will continue to follow Please notofy medicine with acute changes or concerns.
[2024-09-30] MEDS: Omeprazole 20 MG CAPSULE.DR PO (15:55)
[2024-09-30] MEDS: Aspirin 325 MG TABLET PO ×2 (17:32→20:33)
[2024-09-30] MEDS: Atorvastatin Calcium 40 MG TABLET PO (20:32)
[2024-09-30] MEDS: Gabapentin 100 MG CAPSULE PO (20:32)
[2024-09-30] MEDS: Cyanocobalamin (Vitamin B-12) 500 MCG TABLET PO (20:33)
[2024-10-01] VITALS: BP 108/65; PULSE 59; RESP 20; TEMP 36.3; O2SAT 96
[2024-10-01] MEDS: Lactated Ringers 1,000 ML 100 ML IVCONT (02:51)
[2024-10-01 03:01] VITALS: BP 100/60; PULSE 55; RESP 16; TEMP 36.1; O2SAT 94
[2024-10-01 06:03] LABS: MANUAL DIFF FLAG NO
[2024-10-01 06:19] LABS: Anion Gap 13 (12-20); Blood Urea Nitrogen 17 mg/dL (9-16); Calcium 9.1 mg/dL (8.4-10.2); Carbon Dioxide 24 mmol/L (22-29); Chloride 108 mmol/L (96-108); Creatinine Clr Calc Pharmacy 112.4; Estimated Glomerular Filt Rate > 60; Glucose Fasting 111 mg/dL (60-99); Potassium 4.5 mmol/L (3.3-5.1); Sodium 140 mmol/L (135-145)
[2024-10-01 06:20] LABS: Basophils Percent Auto 0.1 % (0-2); Hematocrit 39.5 % (42.0-52.0); Hemoglobin 13.6 g/dl (14.0-18.0); Imm Gran Abs Auto 0.07 X10*3/uL (0.00-0.03); Imm Gran Pct Auto 0.6 % (0.0-0.4); Lymphocytes Absolute Auto 0.7 X10*3/uL (1.2-4.9); Lymphocytes Percent Auto 5.6 % (20-40); Mean Corpuscular HGB Conc 34.4 g/dl (31.0-36.0); Mean Corpuscular Hemoglobin 31.9 pg (27.0-33.0); Mean Corpuscular Volume 92.7 fL (80.0-98.0); Mean Platelet Volume 9.8 fL (9.4-12.4); Monocytes Absolute Auto 0.9 X10*3/uL (0.1-1.2); Monocytes Percent Auto 7.3 % (2-11); Neutrophils Absolute Auto 10.6 x10*3/uL (2.0-8.3); Neutrophils Percent Auto 86.4 % (45-73); Platelet Count 167 X10*3/uL (160-400); Red Blood Count 4.26 X10*6/uL (4.60-5.80); Red Cell Distribution Width 12.7 % (11.0-16.0); White Blood Count 12.2 X10*3/uL (4.8-10.8)
[2024-10-01] MEDS: Aspirin 325 MG TABLET PO (07:14)
[2024-10-01] MEDS: Cyanocobalamin (Vitamin B-12) 500 MCG TABLET PO (07:15)
[2024-10-01] MEDS: Docusate Sodium 100 MG CAPSULE PO (07:15)
[2024-10-01] MEDS: methocarbamoL 500 MG TABLET PO (07:15)
[2024-10-01] MEDS: Celecoxib 200 MG CAPSULE PO (07:15)
[2024-10-01] MEDS: 0.9 % Sodium Chloride Flush 3 ML SYRINGE IVFLUSH (07:18)
--- NOTE | 2024-10-01 07:33 | PM.PNORT ---
Subjective Subjective Date of Service: 10/01/24 Interval history: POD1 s/p RTKA Patient is resting in bed comfortably No overnight events Pain is managed No additional complaints Physical Exam Vital Signs: Vital Signs: Last Vital Signs Temp 96.9 F 10/01/24 03:01 Pulse 55 10/01/24 03:01 Resp 16 10/01/24 03:01 BP 100/60 10/01/24 03:01 Pulse Ox 94 10/01/24 03:01 O2 Del Method Room Air 10/01/24 03:01 BMI result Body Mass Index 26.3 Const: General: cooperative, healthy appearing and no acute distress Resp: Effort & Inspection: normal respiratory effort and able to speak in complete sentences Cardio: Rate: regular rate Peripheral pulses: Peripheral pulses 2+ throughout GI: Palpation (GI): Soft to palpation Skin: Lesions: no lesions Rashes: no rashes Extrem: Other: rt knee dressing is c/d/i. Able to dorsi/plantar flex. Calf is supple and nontender. Sensation intact. Pedal pulse intact. Procedures Date of Service Date of Service: 10/01/24 Progress Note: A&P Assessment and plan (1) Status post total knee replacement, right: Status: Acute Plan Continue pain mgmnt Begin ASA for dvt ppx begin PT for RTKA - WBAT Dispo planning-Pending PT eval, pain mgmnt Time Spent With Patient Time: Total time managing care of this patient today ____ minutes. Quality Stroke Does the patient have a stroke diagnosis?: No VTE Prior VTE?: No VTE Risk Level:: Medical - moderate - high VTE Device Contraindication: N/A - Device Ordered VTE Drug Contraindication: N/A - Med Ordered
[2024-10-01 07:55] VITALS: BP 117/68; PULSE 56; RESP 12; TEMP 36.1; O2SAT 99
--- NOTE | 2024-10-01 08:10 | HO.POSTANES ---
Post Anesthesia Evaluation Post Anesthesia Evaluation Date of Service: 10/01/24 Vital Signs: Vital Signs Temp Pulse Resp BP Pulse Ox O2 Del Method 10/01/24 07:55 96.9 F 56 12 117/68 99 Room Air 10/01/24 03:01 96.9 F 55 16 100/60 94 Room Air 10/01/24 00:00 97.4 F 59 20 108/65 96 Room Air Anesthesia: Regional and Spinal Mental Status: Awake Pain Control: Satisfactory Nausea/Vomiting: None Hydration: Adequate Anesthesia-Related Issues: No Anes. Related Issues
--- NOTE | 2024-10-01 09:40 | MHC.CM.PN ---
pt lives with had no previous services has a ride home when dcd pt to go home with vna
== END 2024-10-01 13:45 | disposition home health service (06) ==
LOC: HO.SSS 08:48 → HO.S3 13:07
PROVIDERS: Physician Assistant; PCP Physician Assistant Medical; Visit Provider Orthopaedic Surgery
PROC: (CPT 27447; principal; 2024-09-30 09:00)
DX: M17.11 Unilateral primary osteoarthritis, right knee (principal); M25.561 Pain in right knee; R26.2 Difficulty in walking, not elsewhere classified; I97.191 Other postprocedural cardiac functional disturbances following other surgery; R00.1 Bradycardia, unspecified; Y83.9 Surgical procedure, unspecified as the cause of abnormal reaction of the patient, or of later complication, without mention of misadventure at the time of the procedure; K21.9 Gastro-esophageal reflux disease without esophagitis; E78.5 Hyperlipidemia, unspecified; Z86.69 Personal history of other diseases of the nervous system and sense organs; R33.9 Retention of urine, unspecified; F10.90 Alcohol use, unspecified, uncomplicated; Z79.899 Other long term (current) drug therapy; Z98.890 Other specified postprocedural states
CPT/HCPCS: 27447; 36415; 80048; 83036; 85025; 85027; 86850; 86900; 86901; 87640; 87641; 88305; 88311; 93005; 97161; C1776; J0131; J0665; J0690; J1100; J2003; J2250; J2704; J3370; J7120

== ENCOUNTER → 2024-09-30 06:41 | Outpatient (BNV) | payer MEDICARE, SELFPAY | PROVIDERS: PCP Physician Assistant Medical; Visit Provider Nurse Practitioner Family | DX: I97.89 Other postprocedural complications and disorders of the circulatory system, not elsewhere classified (principal) | CPT/HCPCS: 99222 ==

== ENCOUNTER → 2024-09-30 06:41 | Outpatient (BNV) | payer MEDICARE, SELFPAY | PROVIDERS: PCP Physician Assistant Medical; Visit Provider Orthopaedic Surgery | DX: Z47.1 Aftercare following joint replacement surgery (principal); Z96.651 Presence of right artificial knee joint | CPT/HCPCS: 27447; 99024; G0180 ==

== ENCOUNTER → 2024-09-30 15:30 | Outpatient (BNV) | payer MEDICARE, SELFPAY | PROVIDERS: PCP Physician Assistant Medical; Visit Provider Internal Medicine | DX: I45.10 Unspecified right bundle-branch block (principal); R00.1 Bradycardia, unspecified | CPT/HCPCS: 93010 ==

== ENCOUNTER 2024-10-02 12:47 | Outpatient (AMB) | payer MEDICARE, SELFPAY ==
--- OUTSIDE RECORDS SUMMARY | 2024-05-30 05:00 | XMS_ITS | Continuity of Care Document ---
Author Organization [facility] Address [address] [place] [address] [address] [place] [address] Phone Care Team Providers Care Body Make Up Artist Name Role Phone Abdelrahman ELLINGTON, RVT, RPVI, [...] Mins- [place] & [place] [facility], [address] [place] [address] [address], [id number], [place] tel:[phone] [place] Venous insufficiency (chronic) (peripheral) 5 Abdelrahman ELLINGTON RVT, RPVI Robert. [address] [place] [address], [address], [place], [id number], [place]. tel:[phone] [place] [facility], [address] [place] [address] [address]Dada [place], [id number], [place] tel:[phone] [facility] [place] Pain in left leg 5 Abdelrahman ELLINGTON RVT, EVIE Jennings. [address] [place] [address], Suite [facility], [place], [id number], [place]. tel:[phone] Referring Provider: Dick Quick MD, RVT, EVIE, [address] [place] [address] [address] [facility], [place], [address] . tel:[phone] [place] [facility], [address] [place] [address] [address]ada [place], [id number], [place] tel:[phone] [facility] Varicose veins of left lower extremity with other complications 5 Abdelrahman ELLINGTON RVT, RPVI Robert. [address] [place] [address], [address] [facility], [place], [id number], [place]. tel:[phone] [place] [facility], [address] [place] [address] [address], [id number], [place] tel:[phone] [facility] Encounter for follow-up examination after completed treatment for conditions other than malignant neoplasm 5 Abdelrahman ELLINGTON RVT, RPVI Robert. [address] [place] [address], [address] [facility], [place], [id number], [place]. tel:[phone] Referring Provider: Dick Quick MD, RVT, EVIE, [address] [place] [address] [address] [facility], [place], [address] . tel:[phone] [place] [facility], [address] [place] [address] Dr Araujo 1000SuDada mohr [place], [id number], [place] tel:[phone] [facility] - [place] - [place] Varicose veins of left lower extremity with other complications 5 Abdelrahman ELLINGTON RVT, EVIE Jennings. [address] [place] [address], [facility] [place], [id number], [place]. tel:[phone] Offic/outpt E&m Estab 5 Min Trial- Telemedicine CT & [place] [facility], [address] [place] [address] Dr Araujo 1000SuDada mohr MD, [id number], [place] tel:[phone] [facility] Localized edemaCramp and spasmVenous insufficiency (chronic) (peripheral)P ruritus, unspecified 5 Tono Salas. [address] [place] [address], [place], [id number], [place]. tel:[phone] [place] [facility], [address] [place] [address] Dr Araujo 1000Dada mohr [place], [id number], [place] tel:[phone] [facility] [place] No Information 5 Abdelrahman ELLINGTON RVT, EVIE Jennings. [address] [place] [address], [place], [id number], [place]. tel:[phone] Office/Oupt E&M New Pt 30 Mins- CT & [place] [facility], [address] [place] [address] Dr Araujo 1000Dada mohr [place], [id number], [place] tel:[phone] [facility] Chronic venous hypertension (idiopathic) without complications of bilateral lower extremityPrur itus, unspecifiedCr amp and spasm 4 Abdelrahman ELLINGTON RVT, EVIE Jennings. [address] [place] [address], [place], [id number], [place]. tel:[phone] [place] [facility], [address] [place] [address] Dr Araujo 1000Dada mohr [place], [id number], [place] tel:[phone] [facility] - [place] Varicose veins of left lower extremity with pain Abdelrahman ELLINGTON, MATA, EVIE Jennings. [address] [place] [address], [place] [address], [place], [id number], . tel:[phone] Referring Provider: Dick Quick MD, MATA, EVIE, [address] [place] [address], [place], [id number] . tel:[phone] Family History Family Member Type Diagnosis Age At Onset No Information Payers Payer name Insurance type Covered republican ID Authoriza tion(s) Medicare GAURANG SCHMITT [id number] BCBS GAURANG SANCHEZ [id number] Social History Type Description Quantity Date Captured [...] education booklet given Related to Localized edema Pre and post instruc tions reviewed and provided Related to Chronic venous hypertension (idiopathic) without complications of bilateral lower extremity Patient education booklet given Related to Chronic venous hypertension (idiopathic) without complications of bilateral lower extremity Lifestyle education Related to B renato mass index (BMI) 25.0-25.9, adult Giving Encouragement to exercise Related to Body mass index (BMI) 25.0-25.9, adult Diet education Related to Body mass index (BMI) 25.0-25.9, adult Assessments Type Assessment Date No Information Patient Care Teams Name Effective Dates (start - stop) Status Members No Information
--- NOTE | 2024-10-02 13:06 | A.OFFVIS_ITS ---
Intake Visit Reasons: PO-R TKA w/DR 09/30/24 dressing change Intake Note: Mr. Riggins underwent right total knee replacement surgery on 09/30/2024 and presents for a dressing change. The patient states that he noticed that his dressing had become loose yesterday. He continues with his home physical therapy. He denies any fevers or chills. Allergies No Known Allergies Allergy (Verified 09/30/24 07:16) Medication List - Last Reconciled 10/02/24 by Hunter Machado MD acetaminophen 500 mg PO Q6H PRN aspirin 325 mg PO BID 42 days atorvastatin 40 mg PO BEDTIME carboxymethylcellulose sodium 1% 1 drp ophthalmic (eye) QID celecoxib (Celebrex) 200 mg PO BID PRN 30 days cyanocobalamin (vitamin B-12) (B-12 DOTS) 500 mcg PO BID docusate sodium 100 mg PO BID 30 days gabapentin 100 mg PO BEDTIME 7 days methocarbamol 500 mg PO TID 7 days omega 0-uum-acg-fish oil 1,200 (144-216) mg (Fish Oil) 1 cap PO BID oxycodone 5 mg PO Q4H PRN 7 days pantoprazole 40 mg PO BEDTIME sildenafil 100 mg PO DAILY PRN walker Folding front wheeled walker [facility] Medical History Arthritis GERD (gastroesophageal reflux disease) History of seizure (~2012) History of irregular heartbeat HLD (hyperlipidemia) Surgical History Hx of wisdom tooth extraction Hx of tonsillectomy History of esophagogastroduodenoscopy (EGD) Hx of colonoscopy H/O inguinal hernia repair (12/19/00) Hx of shoulder surgery (~2014) Social History Household Members: Spouse Housing: House Are you a primary behavioral health care coordinator to a significant other at home: No Do you presently have visiting nurse or other home services: No 75 years or older and lives alone: No Alcohol intake: current Patient Tobacco Use Status: Never used Tobacco e-Cigarette/Vaping Use: Never Used service: No Physical Exam Extrem Other: Right lower extremity examination shows that the surgical incision is healing well, no erythema, minimal discomfort with range of motion Assessment & Plan Assessment & Plan (1) Right knee pain: Code(s): M25.561 - Pain in right knee Category: Medical Plan Viet is doing well after undergoing right total knee replacement surgery on 09/30/2024. A sterile dressing was applied. He will continue with his physical therapy exercises. He will follow up as scheduled. Feel free to call me at any time should questions regarding his orthopedic management arise. Coding Level of Care Code Global (18810) Diagnoses Right knee pain M25.561
== END 2024-10-02 13:06 | disposition home or self-care (01) ==
LOC: HO.HOS 12:48
PROVIDERS: PCP Physician Assistant Medical; Visit Provider Orthopaedic Surgery
DX: M25.561 Pain in right knee (principal)
CPT/HCPCS: 99024

== ENCOUNTER → 2024-10-02 12:47 | Outpatient (BNVA) | payer MEDICARE, SELFPAY | PROVIDERS: PCP Physician Assistant Medical; Visit Provider Orthopaedic Surgery | DX: M25.561 Pain in right knee (principal) | CPT/HCPCS: 99212 ==

== ENCOUNTER 2024-10-17 09:15 | Outpatient (REF) | payer MEDICARE, SELFPAY ==
--- OUTSIDE RECORDS SUMMARY | 2024-05-30 05:00 | XMS_ITS | Continuity of Care Document ---
Author Organization [facility] Address [address] [place] [address] [address] [place] [address] Phone Care Team Providers Care Lpn Medical Assistant Name Role Phone Abdelrahman ELLINGTON, RVT, RPVI, [...] Mins- [place] & [place] [facility], [address] [place] [address] [address]Dada [place], [id number], [place] tel:[phone] [place] Venous insufficiency (chronic) (peripheral) 5 Abdelrahman ELLINGTON RVT, RPVI Robert. [address] [place] [address], [address], [place], [id number], [place]. tel:[phone] [facility], [address] [place] [address] [address]Dada MD, [id number], [place] tel:[phone] [place] Pain in left leg 5 Abdelrahman ELLINGTON RVT, EVIE Jennings. [address] [place] [address], Suite [facility], [place], [id number], [place]. tel:[phone] Referring Provider: Dick Quick MD, RVT, EVIE, [address] [place] [address] Suite [facility], [place], [address] . tel:[phone] [facility], [address] [place] [address] [address]Dada MD, [id number], [place] tel:[phone] [place] Varicose veins of left lower extremity with other complications 5 Abdelrahman ELLINGTON RVT, RPVI Robert. [address] [place] [address], Suite [facility], [place], [id number], [place]. tel:[phone] [facility], [address] [place] [address] [address]Dada [place], [id number], [place] tel:[phone] [place] Encounter for follow-up examination after completed treatment for conditions other than malignant neoplasm 5 Abdelrahman ELLINGTON RVT, RPVI Robert. [address] [place] [address], Suite [facility], [place], [id number], [place]. tel:[phone] Referring Provider: Dick Quick MD, RVT, EVIE, [address] [place] [address] Suite [facility], [place], [address] . tel:[phone] [facility], [address] [place] [address] Dr Araujo 1000SuDada mohr MD, [id number], [place] tel:[phone] [place] Varicose veins of left lower extremity with other complications 5 Abdelrahman ELLINGTON RVT, EVIE Jennings. [address] [place] [address], [facility] [place], [id number], [place]. tel:[phone] Offic/outpt E&m Estab 5 Min Trial- Telemedicine CT & [place] [facility], [address] [place] [address] Dr Araujo 1000SuDada mohr MD, [id number], [place] tel:[phone] [place] Localized edemaCramp and spasmVenous insufficiency (chronic) (peripheral)P ruritus, unspecified 5 Tono Salas. [address] [place] [address], [place], [id number], [place]. tel:[phone] [facility], [address] [place] [address] Dr Araujo 1000Dada mohr MD, [id number], [place] tel:[phone] [place] No Information 5 Abdelrahman ELLINGTON RVT, EVIE Jennings. [address] [place] [address], [place], [id number], [place]. tel:[phone] Office/Oupt E&M New Pt 30 Mins- [place] & [place] [facility], [address] [place] [address] Dr Araujo 1000Dada mohr MD, [id number], [place] tel:[phone] [place] Chronic venous hypertension (idiopathic) without complications of bilateral lower extremityPrur itus, unspecifiedCr amp and spasm 4 Abdelrahman ELLINGTON RVT, EVIE Jennings. [address] [place] [address], [place], [id number], [place]. tel:[phone] [facility], [address] [place] [address] Dr Araujo 1000Dada mohr MD, [id number], [place] tel:[phone] [place] Varicose veins of left lower extremity with pain Abdelrahman ELLINGTON, MATA, EVIE Jennings. [address] [place] [address], [facility], [place], [id number], . tel:[phone] Referring Provider: Dick Quick MD, MATA, EVIE, [address] [address], [place], [address] . tel:[phone] Family History Family Member Type Diagnosis Age At Onset No Information Payers Payer name Insurance type Covered green party ID Authoriza tion(s) Medicare GAURANG SCHMITT [id number] BCBS GAURANG SANCHEZ [id number] Social History Type Description Quantity Date Captured [...] Information Instructions Date Instruction Additional Infor mation Diet education Related to Body mass index (BMI) 25.0-25.9, adult Giving Encouragement to exercise Related to Body mass index (BMI) 25.0-25.9, adult Lifestyle education Related to B renato mass index (BMI) 25.0-25.9, adult Compression stocking usage as conservative measure Related to Venous insufficiency (chronic) (peripheral) Patient education booklet given Related to Venous insufficiency (chronic) (peripheral) Patient education booklet given Related to Localized edema Pre and post instruc tions reviewed and provided Related to Localized edema Diet education Related to Body mass index (BMI) 25.0-25.9, adult Giving Encouragement to exercise Related to Body mass index (BMI) 25.0-25.9, adult Lifestyle education Related to B renato mass index (BMI) 25.0-25.9, adult Patient education booklet given Related to Chronic venous hypertension (idiopathic) without complications of bilateral lower extremity Pre and post instruc tions reviewed and provided Related to Chronic venous hypertension (idiopathic) without complications of bilateral lower extremity Assessments Type Assessment Date No Information Patient Care Teams Name Effective Dates (start - stop) Status Members No Information
--- NOTE | ~2024-10-17 | XR_ITS ---
EXAMINATION: XR KNEE, RIGHT CLINICAL INFORMATION: M25.569 - Pain in unspecified knee COMPARISON: April 05, 2023. TECHNIQUE: AP view both knees in standing position. Lateral and sunrise views of the right knee. FINDINGS: Metallic prosthesis with a femoral and tibial component well-seated in the osseous structures with cement. No acute cortical disruption or malalignment. Skin petra in the anterior right knee. Vascular calcifications. There is a abli-fh-bsejezwy medial compartment osteoarthrosis on the left knee no fully evaluated. XR/XR knee RT 3V IMPRESSION: Status post total right knee arthroplasty. Satisfactory. Medial compartment osteoarthrosis, moderate, left knee. Atherosclerosis disease, peripheral. Electronically signed by: Christofer Woo MD 10/17/2024 12:51 PM EDT
== END 2024-10-17 09:16 | disposition home or self-care (01) ==
LOC: HO.HOSX 09:15
PROVIDERS: Visit Provider Physician Assistant
DX: Z96.651 Presence of right artificial knee joint (principal)
CPT/HCPCS: 73562; 99212

== ENCOUNTER 2024-10-17 12:22 | Outpatient (AMB) | payer MEDICARE, SELFPAY ==
--- NOTE | 2024-10-17 13:08 | MHC.OFFVIS ---
Intake Visit Reasons: 2WK PO: R TKA w/ 09/30/24 Intake Note: Viet is a 69 year old male who presents today for post op appointment s/p right TKA 09/30/24 Patient reports he is doing well. Incision site looks clean and dry. Bandage was removed. Allergies No Known Allergies Allergy (Verified 10/17/24 13:16) HPI HPI 2WK PO: R TKA w/ 09/30/24: Details: Mr. Riggins is a 69-year-old male who presents to the office today status post right total knee arthroplasty performed by Dr. Machado on 09/30/2024. [facility] Medical History Arthritis GERD (gastroesophageal reflux disease) History of seizure (~2012) History of irregular heartbeat HLD (hyperlipidemia) Surgical History Hx of wisdom tooth extraction Hx of tonsillectomy History of esophagogastroduodenoscopy (EGD) Hx of colonoscopy H/O inguinal hernia repair (12/19/00) Hx of shoulder surgery (~2014) Social History Household Members: Spouse Housing: House Are you a primary critical care rn to a significant other at home: No Do you presently have visiting nurse or other home services: No 75 years or older and lives alone: No Alcohol intake: current Patient Tobacco Use Status: Never used Tobacco e-Cigarette/Vaping Use: Never Used service: No Review of Systems Const All systems reviewed & are unremarkable except as noted in HPI and below Physical Exam Const General: cooperative, healthy appearing and no acute distress Resp Effort & Inspection: normal respiratory effort and able to speak in complete sentences Skin Lesions: no lesions Rashes: no rashes Extrem Other: Right knee incision site clean dry and intact. [place] intact. No surrounding erythema or drainage. No signs of infection. Range of motion: Assessment & Plan Assessment & Plan (1) Status post total knee replacement, right: Code(s): Z96.651 - Presence of right artificial knee joint Category: Surgical Plan Mr. Riggins is a 69-year-old male who presents to the office today status post right total knee arthroplasty performed by Dr. Machado on 09/30/2024. While in the office today, petra were removed and Steri-Strips were applied. The patient will transition to outpatient physical therapy. He will continue aspirin 325 mg p.o. b.i.d. for a total of 6 weeks postoperatively for DVT prophylaxis. He will follow up in [address] Machado, sooner if needed. X-rays of the right knee which were obtained while in the office today and were reviewed by me, Alma Lemons PA-C, revealed intact total knee arthroplasty with satisfactory alignment. Orders: Orders XR knee RT 3V Today M25.569 - Pain in unspecified knee Coding Level of Care Code Global (68435) Diagnoses Status post total knee replacement, right Z96.651
== END 2024-10-17 13:44 | disposition home or self-care (01) ==
LOC: HO.HOS 12:23
PROVIDERS: PCP Physician Assistant Medical; Visit Provider Physician Assistant
DX: Z96.651 Presence of right artificial knee joint (principal)
CPT/HCPCS: 99024

== ENCOUNTER → 2024-10-17 12:24 | Outpatient (BNV) | payer MEDICARE, SELFPAY | PROVIDERS: Visit Provider Radiology Diagnostic Radiology | DX: M17.11 Unilateral primary osteoarthritis, right knee (principal); I70.261 Atherosclerosis of native arteries of extremities with gangrene, right leg; Z96.651 Presence of right artificial knee joint | CPT/HCPCS: 73562 ==

== ENCOUNTER 2024-11-21 10:39 | Outpatient (AMB) | payer MEDICARE, SELFPAY ==
--- NOTE | 2024-11-21 10:45 | MHC.OFFVIS ---
Intake Visit Reasons: 6WK PO: R TKA w/ 09/30/24 Intake Note: Viet is a 69 year old male who presents today as a 6 Week Post Op visit for his right TKA w/ 09/30/24. Patient states he is doing well, attending P.T and only has 2 sessions left. States he has no concerns for todays visit. Allergies No Known Allergies Allergy (Verified 11/21/24 10:49) Medication List - Last Reconciled 11/21/24 by Hunter Machado MD acetaminophen 500 mg PO Q6H PRN aspirin 325 mg PO BID 42 days atorvastatin 40 mg PO BEDTIME carboxymethylcellulose sodium 1% 1 drp ophthalmic (eye) QID celecoxib (Celebrex) 200 mg PO BID PRN 30 days cyanocobalamin (vitamin B-12) (B-12 DOTS) 500 mcg PO BID docusate sodium 100 mg PO BID 30 days gabapentin 100 mg PO BEDTIME 7 days methocarbamol 500 mg PO TID 7 days omega 7-wyy-ead-fish oil 1,200 (144-216) mg (Fish Oil) 1 cap PO BID oxycodone 5 mg PO Q4H PRN 7 days pantoprazole 40 mg PO BEDTIME sildenafil 100 mg PO DAILY PRN walker Folding front wheeled walker [facility] Medical History Arthritis GERD (gastroesophageal reflux disease) History of seizure (~2012) History of irregular heartbeat HLD (hyperlipidemia) Surgical History Hx of wisdom tooth extraction Hx of tonsillectomy History of esophagogastroduodenoscopy (EGD) Hx of colonoscopy H/O inguinal hernia repair (12/19/00) Hx of shoulder surgery (~2014) Social History Household Members: Spouse Housing: House Are you a primary intensive care specialist to a significant other at home: No Do you presently have visiting nurse or other home services: No 75 years or older and lives alone: No Alcohol intake: current Patient Tobacco Use Status: Never used Tobacco e-Cigarette/Vaping Use: Never Used service: No Physical Exam Extrem Other: Right knee examination shows that the surgical incision is well healed, no erythema, full active extension and flexion to 120 degrees, his patella tracks well Assessment & Plan Assessment & Plan (1) Right knee pain: Code(s): M25.561 - Pain in right knee Category: Medical Plan Mr. Riggins continues to do very well after undergoing right total knee replacement surgery on 09/30/2024. He will continue with his physical therapy exercises. He does know to take antibiotics before any dental work. He will contact me prior to his follow-up appointment in 3 months should any questions or concerns arise. Medications: New amoxicillin Take four caps (2,000 mg) one hour before any dental work 2,000 mg (4 x 500 mg) PO ONCE 20 caps 3RF Coding Level of Care Code Global (09479) Diagnoses Right knee pain M25.561
== END 2024-11-21 11:18 | disposition home or self-care (01) ==
LOC: HO.HOS 10:40
PROVIDERS: Visit Provider Orthopaedic Surgery
DX: M25.561 Pain in right knee (principal)
CPT/HCPCS: 99024

== ENCOUNTER → 2024-11-21 10:39 | Outpatient (BNVA) | payer MEDICARE, SELFPAY | PROVIDERS: Visit Provider Orthopaedic Surgery | DX: M25.561 Pain in right knee (principal) | CPT/HCPCS: 99212 ==

== ENCOUNTER 2024-11-22 09:00 | Outpatient (RCR) | payer MEDICARE, SELFPAY | END 2024-12-18 08:17 | disposition home or self-care (01) | LOC: HO.PT 09:00 | PROVIDERS: PCP Physician Assistant Medical; Visit Provider Physician Assistant | DX: Z96.651 Presence of right artificial knee joint (principal) | CPT/HCPCS: 97110; 97161; 97530 ==

== ENCOUNTER 2025-02-19 07:29 | Outpatient (AMB) | payer MEDICARE, SELFPAY ==
--- OUTSIDE RECORDS SUMMARY | 2024-05-30 04:00 | XMS_ITS | Continuity of Care Document ---
Author Organization [facility] Address [address] [place] [address] [address] [place] [address] Phone Care Team Providers Care License Distributor Name Role Phone Abdelrahman ELLINGTON, RVT, RPVI, Dick Unavailable U navailable Allergies, Adverse Reactions, Alerts Substance Reaction Status Criticality No Known Allergies Active No Inform ation Procedures Procedure Date Office/Outpt E&M Established 15 Mins- CT & [place] Duplex Scan-extrem Veins; Uni/ CT & [place] F Phleb Veins - Extrem - To 20- CT & [place] Ja Duplex Scan-extrem Veins; Uni/ CT & [place] J Endovenous Rf, 1st Vein- CT & [place] 2024 Offic/outpt E&m Estab 5 Min Trial- Telem edicine CT & [place] Office/Oupt E&M New Pt 30 Mins- CT & [place] Duplex Scan-extrem Veins; Uni/ CT & [place] N Advance Directives Directive Yes / No Effective Date File Name Other Directive No 05/30/2024 N/A WARNING:The information contained in this section is historical and is provided for information only and does not constitute a legal document or any assurance that the information is still accurate. Please verify the information with the teixeira of the legal document before using it for clinical purposes. Encounters Encounter Description Practice Location Reason(s) For Visit Diagnoses Date Provider Providers Copied on Encounter Office/Outpt E&M Established 15 Mins- [place] & [place] [facility], [address] [place] [address] [address], [id number], [place] tel:[phone] [facility] [place] Venous insufficiency (chronic) (peripheral) 5 Abdelrahman ELLINGTON RVT, RPVI Robert. [address] [place] [address], [address], [place], [id number], [place]. tel:[phone] [place] [facility], [address] [place] [address] [address], [id number], [place] tel:[phone] [facility] [place] Pain in left leg 5 Abdelrahman ELLINGTON RVT, EVIE Jennings. [address] [place] [address], Suite [facility], [place], [id number], [place]. tel:[phone] Referring Provider: Dick Quick MD, RVT, EVIE, [address] [place] [address] Suite [facility], [place], [id number] . tel:[phone] [place] [facility], [address] [place] [address] [address], [id number], [place] tel:[phone] [facility] [place] Varicose veins of left lower extremity with other complications 5 Abdelrahman ELLINGTON RVT, RPVI Robert. [address] [place] [address], Suite [facility], [place], [id number], [place]. tel:[phone] [place] [facility], [address] [place] [address] [address] [place], [id number], [place] tel:[phone] [facility] [place] Encounter for follow-up examination after completed treatment for conditions other than malignant neoplasm 5 Abdelrahman ELLINGTON RVT, RPVI Robert. [address] [place] [address], Suite [facility], [place], [id number], [place]. tel:[phone] Referring Provider: Dick Quick MD, RVT, EVIE, [address] [place] [address] Suite [facility], [place], [address] . tel:[phone] [place] [facility], [address] [place] [address] Dr Araujo 1000SuDada mohr [place], [id number], [place] tel:[phone] [facility] - [place] Varicose veins of left lower extremity with other complications 5 Abdelrahman ELLINGTON RVT, EVIE Jennings. [address] [place] [address], [facility] [place], [id number], [place]. tel:[phone] Offic/outpt E&m Estab 5 Min Trial- Telemedicine CT & [place] [facility], [address] [place] [address] Dr Araujo 1000SuDada mohr [place], [id number], [place] tel:[phone] [facility] [place] Localized edemaCramp and spasmVenous insufficiency (chronic) (peripheral)P ruritus, unspecified 5 Tono Salas. [address] [place] [address], [place], [id number], [place]. tel:[phone] [place] [facility], [address] [place] [address] Dr Araujo [address]Dada mohr [place], [id number], [place] tel:[phone] [facility] [place] No Information 5 Abdelrahman ELLINGTON RVT, EVIE Jennings. [address] [place] [address], [place], [id number], [place]. tel:[phone] Office/Oupt E&M New Pt 30 Mins- CT & [place] [facility], [address] [place] [address] Dr Araujo 1000Dada mohr [place], [id number], [place] tel:[phone] [facility] [place] Chronic venous hypertension (idiopathic) without complications of bilateral lower extremityPrur itus, unspecifiedCr amp and spasm 4 Abdelrahman ELLINGTON RVT, EVIE Jennings. [address] [place] [address], [place], [id number], [place]. tel:[phone] [place] [facility], [address] [place] [address] Dr Araujo 1000Dada mohr [place], [id number], [place] tel:[phone] [facility] [place] Varicose veins of left lower extremity with pain Abdelrahman ELLINGTON, MATA, VEIE Jennings. [address] [place] [address], [place] [address], [place], [id number], . tel:[phone] Referring Provider: Dick Quick MD, MATA, EVIE, [address] [place] [address], [place], [id number] . tel:[phone] Family History Family Member Type Diagnosis Age At Onset No Information Payers Payer name Insurance type Covered republican ID Authoriza tion(s) Medicare GAURANG SCHMITT [id number] BCBS GAURANG SANCHEZ [id number] Social History Type Description Quantity Date Captured Comments Alcohol Use Details Unknown Caffeine Use Details Unknown Tobacco Use Status Current non-smoker Smoking Status Never Smoker Non-Smoking Tobacco Use Details : No Details Available : No Details Available Sex Male Vital Signs Date / Time: Height Weight BMI Pulse Rate Blood Pressure Temperature Respiratory Rate Body Surface Area Head Circumference Head Circ. Percentile Wt./Brayden. Percentile BMI percentile Pulse Ox Inhaled Ox 95.250 kg (210.00 lbs) 25.6 0 kg/m eter (2) 122/80 mm[Hg] Chief Complaint And Reason For Visit No Information Reason For Referral Reason For Referral No Information Plan Of Treatment Date Type Action Status Goal Diet education completed Goal Diet education completed Referral Ordered: Weight management: Referral to physician timeframe: 3 Months (related to Body mass index (BMI) 25.0-25.9, adult) ordered Referral Ordered: Weight management: Referral to physician timeframe: 3 Months (related to Body mass index (BMI) 25.0-25.9, adult) ordered History Of Present Illness Encounter Date Complaint History Of Prese nt Illness No Information Functional Status Date Functional Assessmen t No Information Instructions Date Instruction Additional Infor mation Patient education booklet given Related to Venous insufficiency (chronic) (peripheral) Compression stocking usage as conservative measure Related to Venous insufficiency (chronic) (peripheral) Lifestyle education Related to B renato mass index (BMI) 25.0-25.9, adult Giving Encouragement to exercise Related to Body mass index (BMI) 25.0-25.9, adult Diet education Related to Body mass index (BMI) 25.0-25.9, adult Pre and post instruc tions reviewed and provided Related to Localized edema Patient education booklet given Related to Localized edema Lifestyle education Related to B renato mass index (BMI) 25.0-25.9, adult Giving Encouragement to exercise Related to Body mass index (BMI) 25.0-25.9, adult Diet education Related to Body mass index (BMI) 25.0-25.9, adult Pre and post instruc tions reviewed and provided Related to Chronic venous hypertension (idiopathic) without complications of bilateral lower extremity Patient education booklet given Related to Chronic venous hypertension (idiopathic) without complications of bilateral lower extremity Assessments Type Assessment Date No Information Patient Care Teams Name Effective Dates (start - stop) Status Members No Information
--- NOTE | 2025-02-19 07:53 | MHC.OFFVIS ---
Intake Visit Reasons: OV: R TKA w/ 09/30/24 Intake Note: Viet presents with mild intermittent discomfort in his right knee after undergoing right total knee replacement surgery on 09/30/2024. He continues with his home stretching program. Does not take any medicines for his discomfort. He denies any fevers or chills. Allergies No Known Allergies Allergy (Verified 02/19/25 07:53) Medication List - Last Reconciled 02/19/25 by Hunter Machado MD acetaminophen 500 mg PO Q6H PRN amoxicillin 2,000 mg (4 x 500 mg) PO ONCE aspirin 325 mg PO BID 42 days atorvastatin 40 mg PO BEDTIME carboxymethylcellulose sodium 1% 1 drp ophthalmic (eye) QID celecoxib (Celebrex) 200 mg PO BID PRN 30 days cyanocobalamin (vitamin B-12) (B-12 DOTS) 500 mcg PO BID docusate sodium 100 mg PO BID 30 days gabapentin 100 mg PO BEDTIME 7 days methocarbamol 500 mg PO TID 7 days omega 0-wtv-ubc-fish oil 1,200 (144-216) mg (Fish Oil) 1 cap PO BID oxycodone 5 mg PO Q4H PRN 7 days pantoprazole 40 mg PO BEDTIME sildenafil 100 mg PO DAILY PRN walker Folding front wheeled walker [facility] Medical History Bradycardia following surgery Arthritis GERD (gastroesophageal reflux disease) History of seizure (~2012) History of irregular heartbeat HLD (hyperlipidemia) Surgical History Status post total knee replacement, right Hx of wisdom tooth extraction Hx of tonsillectomy History of esophagogastroduodenoscopy (EGD) Hx of colonoscopy H/O inguinal hernia repair (12/19/00) Hx of shoulder surgery (~2014) Social History Household Members: Spouse Housing: House Are you a primary health care marketing specialist to a significant other at home: No Do you presently have visiting nurse or other home services: No 75 years or older and lives alone: No Alcohol intake: current Patient Tobacco Use Status: Never used Tobacco e-Cigarette/Vaping Use: Never Used service: No Physical Exam Const Other: Well-nourished well-developed very friendly male awake alert and oriented x3 in no acute distress Extrem Other: Right knee examination shows that the surgical incision is well healed, no erythema, full active extension and flexion to 120 degrees, his patellae track well Results Reviewed Results Reviewed: X-rays of the patient's right knee taken today show a total knee arthroplasty in good position with no signs of loosening, no acute bony abnormalities Assessment & Plan Assessment & Plan (1) Right knee pain: Code(s): M25.561 - Pain in right knee Category: Medical Plan Mr. Riggins continues to do well after undergoing right total knee replacement surgery on 09/30/2024. He will continue with his home exercise program. He does know to take antibiotics before any dental work. He will contact me prior to his annual follow-up appointment should any questions or concerns arise. Feel free to call me at any time questions regarding his orthopedic management arise. I spent 22 minutes in reviewing the patient's records and imaging studies, seeing the patient and documenting in the medical record. Orders: Orders XR knee RT 3V Today M25.561 - Pain in right knee Coding Level of Care Code Est Pt Level 3 (24459) Complex EM visit Add On G2211 Diagnoses Right knee pain M25.561
== END 2025-02-19 07:56 | disposition home or self-care (01) ==
LOC: HO.HOS 07:29
PROVIDERS: PCP Physician Assistant Medical; Visit Provider Orthopaedic Surgery
DX: M25.561 Pain in right knee (principal); Z96.651 Presence of right artificial knee joint
CPT/HCPCS: 99213; G2211

== ENCOUNTER → 2025-02-19 07:42 | Outpatient (BNV) | payer MEDICARE, SELFPAY | PROVIDERS: Visit Provider Radiology Diagnostic Ultrasound | DX: M25.561 Pain in right knee (principal) | CPT/HCPCS: 73562 ==

== ENCOUNTER 2025-02-19 13:46 | Outpatient (REF) | payer MEDICARE, SELFPAY ==
--- NOTE | ~2025-02-19 | XR_ITS ---
EXAMINATION: XR KNEE, RIGHT CLINICAL INFORMATION: M25.561 - Pain in right knee COMPARISON: X-ray 10/17/2024 TECHNIQUE: Three views of the right knee. FINDINGS: Total knee arthroplasty in stable position and alignment. No findings suggest hardware complications. No acute fracture. No significant effusion. No abnormal soft tissue calcification. Mild anterior soft tissue swelling. XR/XR knee RT 3V IMPRESSION: No acute findings Electronically signed by: Chapo Tripp MD 02/19/2025 12:05 PM [facility]
== END 2025-02-19 13:47 | disposition home or self-care (01) ==
LOC: HO.HOSX 13:46
PROVIDERS: Visit Provider Orthopaedic Surgery
DX: M25.561 Pain in right knee (principal); Z79.82 Long term (current) use of aspirin; Z79.899 Other long term (current) drug therapy; Z96.651 Presence of right artificial knee joint
CPT/HCPCS: 73562; 99212